=== PATIENT | male | born 1990 | race Caucasian/White ===

== ENCOUNTER 2016-06-16 14:06 | Emergency (ER) | payer MEDICAID, OTHER ==
[~2016-06-16] VITALS: Ht 180.3 cm; Wt 101.5 kg
[~2016-06-16 14:06] MED LIST: BEN25 PO; PRED20TA PO
[2016-06-16 14:50] VITALS: Ht 180.3 cm; Wt 101.5 kg
[2016-06-16] MEDS ORDERED: ONDANSETRON 4 MG INJ IV STA (17:47)
[2016-06-16] MEDS ORDERED: SOD CHLORIDE 0.9% 1,000 ML IV STA (17:47)
[2016-06-16] MEDS ORDERED: morphine 4 MG/ML VIAL IV STA (17:47)
[2016-06-16] MEDS ORDERED: LIDOCAINE/MYLANTA 40 ML BTL PO STA (17:47)
[2016-06-16 18:31] LABS: BASOPHILS % 0.5 % (0.0-2.0); EOSINOPHILS # 0.3 10^3/ul (0.0-0.5); HEMATOCRIT 49.7 % (42.0-52.0); HEMOGLOBIN 16.7 g/dl (14.0-18.0); LYMPHOCYTES % 23.7 % (15.0-51.0); MEAN CORPUSCULAR HGB CONC 33.5 g/dl (32.0-37.0); MEAN CORPUSCULAR VOLUME 89.6 fl (82.0-101.0); MEAN PLATELET VOLUME 9.7 fl (7.4-10.4); MONOCYTE # 0.7 10^3/ul (0.3-0.9); NEUTROPHIL # 5.4 10^3/ul (1.6-7.5); NEUTROPHILS % 64.8 % (39.0-77.0); PLATELET COUNT 247 10^3/UL (140-440); RED BLOOD COUNT 5.55 10^6/ul (4.70-6.10); RED CELL DISTRIBUTION WIDTH 13.5 % (11.5-14.5); UNCORRECTED WBC 8.4 10^3/ul (4.8-10.8); WHITE BLOOD COUNT 8.4 10^3/ul (4.8-10.8)
[2016-06-16 18:36] LABS: CONDITION 1
[2016-06-16 18:43] LABS: ALBUMIN 4.5 g/dl (3.3-4.9); POTASSIUM 4.1 mmol/L (3.5-5.1)
[2016-06-16 18:45] LABS: BILIRUBIN,INDIRECT 0.3 mg/dl (0-1.1); BILIRUBIN,TOTAL 0.3 mg/dl (0.2-1.3); CREATININE 0.69 mg/dl (0.61-1.24)
[2016-06-16 18:46] LABS: ALBUMIN/GLOBULIN RATIO 1.18; CALCIUM 9.2 mg/dl (8.4-10.2); TOTAL PROTEIN 8.3 g/dl (6.1-8.1)
[2016-06-16 18:48] LABS: ADD UMIC YES; URINE BILIRUBIN (Dip) NEGATIVE (NEGATIVE); URINE BLOOD (Dip) NEGATIVE (NEGATIVE); URINE COLOR YELLOW (YELLOW); URINE GLUCOSE (Dip) NEGATIVE (NEGATIVE); URINE KETONES (Dip) TRACE (NEGATIVE); URINE LEUKOCYTE ESTERASE (Dip) NEGATIVE (NEGATIVE); URINE NITRITE (Dip) NEGATIVE (NEGATIVE); URINE TOTAL PROTEIN (Dip) TRACE (NEGATIVE); URINE UROBILINOGEN (Dip) 0.2 E.U./dL (0.1-1.0)
[2016-06-16 19:08] LABS: MUCUS,URINE FEW; URINE RBCS NONE SEEN /HPF (0)
[2016-06-16 19:09] LABS: SQUAMOUS EPITHELIAL CELL,UR RARE
[2016-06-16] MEDS ORDERED: ONDA4TAB14 PO (19:26)
[2016-06-16] MEDS ORDERED: OMEP20CA16 PO (19:26)
[2016-06-16] MEDS ORDERED: DOCU-144 PO (19:26)
--- NOTE | 2016-06-16 20:24 | ERD ---
ER Documentation Chief Complaint Date/Time DATE: 06/16/16 TIME: 20:19 Chief Complaint AP, nausea, blood in stool since last night. HPI Patient is a 25-year-old male who complains of pain that radiates from his upper esophageal area down to the epigastric area and slightly lower in the stomach. Pain started at 3 AM he vomited 41 he has no diarrhea he does have constipation and he strains and he had blood on the tissue paper when he wiped. He admits to chills no fever no UTI symptoms and he had nausea after he ate. Denies history of gallstones. He takes Benadryl denies other medical problems no surgeries. ROS All systems reviewed and are negative except as per history of present illness. Medications Home Meds Active Scripts Docusate Sodium* (Colace*) 100 Mg Capsule, 100 MG PO TID Y for CONSTIPATION, # 30 CAP Prov:PATY OSWALD DO 06/16/16 Ondansetron (Ondansetron Odt) 4 Mg Tab.rapdis, 4 MG PO Q6H Y for NAUSEA AND/OR VOMITING, #6 TAB Prov:PATY OSWALD DO 06/16/16 Omeprazole* (Omeprazole*) 20 Mg Capsule.dr, 20 MG PO BID, #20 Prov:PATY OSWALD DO 06/16/16 Diphenhydramine Hcl* (Benadryl*) 25 Mg Cap, 25 MG PO Q6, #20 CAP Prov:MENDY SANDERS PA-C 03/30/16 Prednisone* (Prednisone*) 20 Mg Tab, 40 MG PO DAILY for 4 Days, TAB Prov:MENDY SANDERS PA-C 03/30/16 Allergies Allergies: Coded Allergies: No Known Allergy (Unverified , 06/16/16) PMhx/Soc Medical and Surgical Hx: pt denies Medical Hx, pt denies Surgical Hx History of Surgery: No Anesthesia Reaction: No Hx Neurological Disorder: No Hx Respiratory Disorders: No Hx Cardiac Disorders: No Hx Psychiatric Problems: No Hx Miscellaneous Medical Probl: No Hx Alcohol Use: Yes Hx Substance Use: No Hx Tobacco Use: Yes Smoking Status: Never smoker Physical Exam Vitals Vital Signs Date Time Temp Pulse Resp B/P Pulse Ox O2 Delivery O2 Flow Rate FiO2 06/16/16 14:50 98.1 77 18 136/88 98 Physical Exam Const: [Alert oriented 4, well-nourished well-developed nontoxic- appearing no apparent distress, interacts appropriately] Head: [Normocephalic/atraumatic, no scalp lesions] Eyes: [Normal Conjunctiva, PERRLA, EOMI no conjunctival injection no conjunctival discharge] ENT: [Normal External Ears, Nose and Mouth, no tonsillar exudates no tonsillar erythema no tonsillar edema oropharynx no erythema. bilateral ear canals are patent, bilateral tympanic membranes nonerythematous.] Neck: [Full range of motion. No meningismus. No cervical lymphadenopathy] Resp: [Clear to auscultation bilaterally, no wheezes rhonchi or rales, breathing normally, no tachypnea no nasal flaring no grunting no accessory muscle use no retractions] Cardio: [Regular rate and rhythm, no murmurs] Abd: [Soft, non tender, non distended. Normal bowel sounds, no rebound rigidity or guarding. Normoactive bowel sounds no flank tenderness, negative McBurney's negative Vickers sign.] Skin: [No petechiae or rashes, no hives no urticaria no abscess no laceration no new warmth] Back: [No midline or flank tenderness, full range of motion without pain ] Ext: [No cyanosis, clubbing or edema] Neuro: M/S: Alert and oriented 4. Face: EOMI, face and pharynx with normal sensation and function Motor: Normal strength throughout, muscle strength is 5 out of 5 bilateral upper extremity and bilateral lower extremity Sensation: Normal sensation throughout Speech: Normal Cerebel: Normal coordination Normal gait DTR: 2+ and symmetric upper/lower extremities Psych: [Normal Mood and Affect, no suicidal ideation or homicide ideation] Result Diagram: 06/16/16180206/16/161802 Results 24 hrs Laboratory Tests Test 06/16/16 18:00 06/16/16 18:03 Urine Bilirubin NEGATIVE Urine Clarity SLIGHTLY CLOUDY Urine Color YELLOW Urine Glucose NEGATIVE% Urine Hemoglobin NEGATIVE Urine Ketones TRACE Urine Leukocyte Esterase NEGATIVE Urine Microscopic RBC NONE SEEN/HPF Urine Microscopic WBC 0-2/HPF Urine Mucus FEW Urine Nitrite NEGATIVE Urine Specific [place] >=1.030 Urine Squamous Epithelial Cells RARE Urine Total Protein TRACE Urine Urobilinogen 0.2 E.U./dL Urine pH 5.5 Alanine Aminotransferase (ALT/SGPT) 62IU/L Albumin 4.5g/dl Albumin/Globulin Ratio 1.18 Alkaline Phosphatase 99IU/L Anion Gap 18 Aspartate Amino Transf (AST/SGOT) 35IU/L Basophils # 0.010^3/ul Basophils % 0.5% Blood Urea Nitrogen 16mg/dl Calcium Level 9.2mg/dl Carbon Dioxide Level 27mmol/L Chloride Level 105mmol/L Creatinine 0.69mg/dl Direct Bilirubin 0.00mg/dl Eosinophils # 0.310^3/ul Eosinophils % 3.0% Globulin 3.80g/dl Glucose Level 93mg/dl Hematocrit 49.7% Hemoglobin 16.7g/dl Indirect Bilirubin 0.3mg/dl Lipase 44U/L Lymphocytes # 2.010^3/ul Lymphocytes % 23.7% Mean Corpuscular Hemoglobin 30.0pg Mean Corpuscular Hemoglobin Concent 33.5g/dl Mean Corpuscular Volume 89.6fl Mean Platelet Volume 9.7fl Monocytes # 0.710^3/ul Monocytes % 8.0% Neutrophils # 5.410^3/ul Neutrophils % 64.8% Nucleated Red Blood Cells # 0.010^3/ul Nucleated Red Blood Cells % 0.0/100WBC Platelet Count 77573^3/UL Potassium Level 4.1mmol/L Red Blood Count 5.5510^6/ul Red Cell Distribution Width 13.5% Sodium Level 146mmol/L Total Bilirubin 0.3mg/dl Total Protein 8.3g/dl White Blood Count 8.410^3/ul Current Medications Medications (Trade) Dose Ordered Sig/Amber Route PRN Reason Start Time Stop Time Status Last Admin Dose Admin Sodium Chloride (NS) 1,000 ml @ 1,000 mls/hr Q1H STAT IV 06/16/16 17:47 06/16/16 18:46 DC 06/16/16 18:00 Morphine Sulfate (morphine) 4 mg ONCE STAT IV 06/16/16 17:47 06/16/16 17:49 DC 06/16/16 18:03 Ondansetron HCl (Zofran Inj) 4 mg ONCE STAT IV 06/16/16 17:47 06/16/16 17:49 DC 06/16/16 18:01 Miscellaneous Medication (Gi Cocktail (2)) 40 ml ONCE STAT PO 06/16/16 17:47 06/16/16 17:49 DC 06/16/16 18:03 Procedures/MDM His urine shows trace ketones and spelled high specific gravity so is likely dehydrated and we did give him IV fluids. Urine does not show nitrates or leukocyte Estrace negative for UTI or pyelonephritis. His no fevers no leukocytosis I doubt diverticulitis appendicitis his lipase is normal I doubt pancreatitis. There is no fever no leukocytosis no transaminitis I doubt cholangitis cholecystitis choledocholithiasis. I doubt pyelonephritis. He may have duodenitis or peptic ulcer disease or gastritis or dyspepsia. He felt better after we gave him IV fluids and nausea medication pain medication GI cocktail. I will give him proton pump inhibitors and he should follow-up with his primary doctor. His vital signs are stable he appears well he has no abdominal tenderness on repeat exam. He stable for discharge ED precautions discussed follow-up with PCP. Departure Diagnosis: Primary Impression: Abdominal pain Abdominal location: epigastric Qualified Code: R10.13 - Epigastric pain Additional Impression: Vomiting in adult patient Condition: Stable Patient Instructions: Lifestyle Changes for Controlling GERD, Medications for GERD, Gerd (Adult), Gastritis Vs. Ulcer Referrals: [facility] YOU HAVE RECEIVED A MEDICAL SCREENING EXAM AND THE RESULTS INDICATE THAT YOU DO NOT HAVE A CONDITION THAT REQUIRES URGENT TREATMENT IN THE EMERGENCY DEPARTMENT. FURTHER EVALUATION AND TREATMENT OF YOUR CONDITION CAN WAIT UNTIL YOU ARE SEEN IN YOUR DOCTORS OFFICE WITHIN THE NEXT 1-2 DAYS. IT IS YOUR RESPONSIBILITY TO MAKE AN APPOINTMENT FOR FOLOW-UP CARE. IF YOU HAVE A PRIMARY DOCTOR --you should call your primary doctor and schedule an appointment IF YOU DO NOT HAVE A PRIMARY DOCTOR YOU CAN CALL OUR PHYSICIAN REFERRAL HOTLINE AT IF YOU CAN NOT AFFORD TO SEE A PHYSICIAN YOU CAN CHOSE FROM THE FOLLOWING [facility] [address] [facility] [address] [facility] [address] [facility] [facility] [address] [facility]. [facility] [address] [facility]. [facility]. [address] [facility]. [facility] YOU HAVE RECEIVED A MEDICAL SCREENING EXAM AND THE RESULTS INDICATE THAT YOU DO NOT HAVE A CONDITION THAT REQUIRES URGENT TREATMENT IN THE EMERGENCY DEPARTMENT. FURTHER EVALUATION AND TREATMENT OF YOUR CONDITION CAN WAIT UNTIL YOU ARE SEEN IN YOUR DOCTORS OFFICE WITHIN THE NEXT 1-2 DAYS. IT IS YOUR RESPONSIBILITY TO MAKE AN APPOINTMENT FOR FOLOW-UP CARE. IF YOU HAVE A PRIMARY DOCTOR --you should call your primary doctor and schedule and appointment IF YOU DO NOT HAVE A PRIMARY DOCTOR YOU CAN CALL OUR PHYSICIAN REFERRAL HOTLINE AT . IF YOU CAN NOT AFFORD TO SEE A PHYSICIAN YOU CAN CHOSE FROM THE FOLLOWING [facility] INSTITUTIONS: [facility] [address] [place] [address] [facility] [address] [place] [address] [facility] [address] [place] [address] PATY OSWALD DO Jun 16, 2016 20:24
== END 2016-06-16 19:32 | disposition home or self-care (01) ==
LOC: FTE 14:06
DX: R10.13 Epigastric pain (principal); R11.10 Vomiting, unspecified; Z72.0 Tobacco use
CPT/HCPCS: 80053; 81001; 83690; 85025; J2270; J2405; J7030; Z7610; 36415; 81003; 96374; 96375

== ENCOUNTER 2016-09-28 19:35 | Emergency (ER) | payer OTHER ==
[~2016-09-28] VITALS: Ht 172.7 cm; Wt 102.5 kg
[~2016-09-28 19:35] MED LIST changes: +DOCU-144 PO; +OMEP20CA16 PO; +ONDA4TAB14 PO
[2016-09-28 19:41] VITALS: Ht 172.7 cm; Wt 102.5 kg
[2016-09-28] MEDS ORDERED: ONDANSETRON (ODT) 4 MG TAB ODT STA (23:54)
[2016-09-28] MEDS ORDERED: KETOROLAC 30 MG INJ IM STA (23:54)
[2016-09-29 00:14] LABS: ADD SCAN DIFF NO
[2016-09-29 00:16] LABS: BASOPHILS % 0.4 % (0.0-2.0); EOSINOPHILS # 0.2 10^3/ul (0.0-0.5); HEMATOCRIT 51.3 % (42.0-52.0); HEMOGLOBIN 17.1 g/dl (14.0-18.0); LYMPHOCYTES # 1.6 10^3/ul (0.8-2.9); LYMPHOCYTES % 16.9 % (15.0-51.0); MEAN CORPUSCULAR HEMOGLOBIN 30.8 pg (29.0-33.0); MEAN CORPUSCULAR HGB CONC 33.3 g/dl (32.0-37.0); MEAN CORPUSCULAR VOLUME 92.4 fl (82.0-101.0); MEAN PLATELET VOLUME 11.3 fl (7.4-10.4); MONOCYTE # 0.7 10^3/ul (0.3-0.9); MONOCYTES % 7.6 % (0.0-11.0); NEUTROPHILS % 72.6 % (39.0-77.0); PLATELET COUNT 260 10^3/UL (140-415); RED BLOOD COUNT 5.55 10^6/ul (4.70-6.10); RED CELL DISTRIBUTION WIDTH 13.2 % (11.5-14.5); WHITE BLOOD COUNT 9.7 10^3/ul (4.8-10.8)
[2016-09-29 00:18] LABS: ADD UMIC NO; URINE BILIRUBIN (Dip) NEGATIVE (NEGATIVE); URINE BLOOD (Dip) NEGATIVE (NEGATIVE); URINE COLOR LT. YELLOW (YELLOW); URINE GLUCOSE (Dip) NEGATIVE (NEGATIVE); URINE KETONES (Dip) NEGATIVE (NEGATIVE); URINE LEUKOCYTE ESTERASE (Dip) NEGATIVE (NEGATIVE); URINE NITRITE (Dip) NEGATIVE (NEGATIVE); URINE TOTAL PROTEIN (Dip) NEGATIVE (NEGATIVE); URINE UROBILINOGEN (Dip) 0.2 E.U./dL (0.1-1.0)
[2016-09-29 00:29] LABS: ALBUMIN 4.5 g/dl (3.3-4.9); ALBUMIN/GLOBULIN RATIO 1.28; BILIRUBIN,INDIRECT 0.6 mg/dl (0-1.1); BILIRUBIN,TOTAL 0.6 mg/dl (0.2-1.3); CALCIUM 9.2 mg/dl (8.4-10.2); CREATININE 0.7 mg/dl (0.61-1.24); POTASSIUM 4.2 mmol/L (3.5-5.1)
--- NOTE | 2016-09-29 01:30 | RADRPT ---
PROCEDURE: Abdominal ultrasound, limited. CLINICAL INDICATION: Abdominal pain. TECHNIQUE: Multiple real-time images were acquired of the patient's right upper abdomen utilizing a high resolution transducer. COMPARISON: None FINDINGS: The liver demonstrates increased echogenicity and size measuring 20.4 cm. There is no focal mass or intrahepatic biliary ductal dilatation. The portal vein is patent. The gallbladder is not distend ed. No gallstones are identified. There is no pericholecystic fluid or gallbladder wall thickening . The common bile duct measures 3.8 mm in maximal dimension. The pancreas is obscured by overlying bowel gas. No free fluid is identified. The right kidney is normal size and echogenicity measuring 12.8 cm. There is no focal renal mass or echogenic calculus identified. There is no obstructive uropathy. IMPRESSION: Enlarged liver with fatty infiltration. Pancreas obscured by overlying bowel gas. .Kodi Brown MD, MD Date Time Electronically viewed and signed by .Kodi Brown MD, MD on 09/29/2016 01:30 .T/
[2016-09-29] MEDS ORDERED: HYDR-906 PO (01:42)
[2016-09-29] MEDS ORDERED: OMEP20CA16 PO (01:42)
[2016-09-29] MEDS ORDERED: ONDA4TAB8 PO (01:42)
[2016-09-29 01:56] VITALS: BP 139/90; PULSE 84; RESP 18; TEMP 97.9
--- NOTE | 2016-09-29 23:27 | ERD ---
ER Documentation Chief Complaint Date/Time DATE: 09/29/16 TIME: 23:09 Chief Complaint diffuse abd pain x 2 days HPI This is a 26 year old male who presents with abdominal pain and nausea x2 days. He describes it as sharp, epigastric pain that radiates to the umbilical area and with sudden onset. Pain is intermittent and is aggravated after eating. Pt takes OTC benadryl and prilosec for symptom relief. Denies fever, anorexia, vomiting, chest pain, dysuria, constipation or diarrhea. No recent sick contacts or foreign travel. ROS All systems reviewed and are negative except as per history of present illness. Medications Home Meds Active Scripts Hydrocodone/Acetaminophen (Lynn 5-325 Tablet) 1 Each Tablet, 1 TAB PO Q6H Y for PAIN, #10 TAB Prov:NIDIA FRY 09/29/16 Ondansetron Hcl* (Zofran*) 4 Mg Tablet, 4 MG PO Q6H for NAUSEA AND/OR VOMITING, #30 TAB Prov:NIDIA FRY 09/29/16 Omeprazole* (Omeprazole*) 20 Mg Capsule.dr, 20 MG PO DAILY, #30 Prov:NIDIA FRY 09/29/16 Docusate Sodium* (Colace*) 100 Mg Capsule, 100 MG PO TID Y for CONSTIPATION, # 30 CAP Prov:PATY OSWALD DO 06/16/16 Ondansetron (Ondansetron Odt) 4 Mg Tab.rapdis, 4 MG PO Q6H Y for NAUSEA AND/OR VOMITING, #6 TAB Prov:PATY OSWALD DO 06/16/16 Omeprazole* (Omeprazole*) 20 Mg Capsule.dr, 20 MG PO BID, #20 Prov:PATY OSWALD DO 06/16/16 Diphenhydramine Hcl* (Benadryl*) 25 Mg Cap, 25 MG PO Q6, #20 CAP Prov:MENDY SANDERS PA-C 03/30/16 Prednisone* (Prednisone*) 20 Mg Tab, 40 MG PO DAILY for 4 Days, TAB Prov:MENDY SANDERS PA-C 03/30/16 Allergies Allergies: Coded Allergies: No Known Allergy (Unverified , 06/16/16) PMhx/Soc History of Surgery: No Anesthesia Reaction: No Hx Neurological Disorder: No Hx Respiratory Disorders: No Hx Cardiac Disorders: No Hx Psychiatric Problems: No Hx Miscellaneous Medical Probl: No Hx Alcohol Use: Yes Hx Substance Use: No Hx Tobacco Use: Yes Smoking Status: Unknown if ever smoked Physical Exam Vitals Vital Signs Date Time Temp Pulse Resp B/P Pulse Ox O2 Delivery O2 Flow Rate FiO2 09/29/16 01:56 97.9 84 18 139/90 98 Room Air 09/28/16 19:41 98.7 87 20 143/65 98 Physical Exam Physical Exam CONST: Well-developed, well-nourished, in no acute distress. Nontoxic in appearance. HEENT: Atraumatic. Normal conjunctiva. EOM intact. TM intact. External ear is normal. Clear oropharnyx without erythema. No uvular deviation. Moist mucous membranes. Supple neck. No meningismus. No submandibular induration. RESP: Clear to auscultation bilaterally. No wheezing. CARDIO: Regular rate and rhythm, no murmurs. ABD: Epigastric and supraumbilical tenderness. Abdomen is soft and non- distended. Normal bowel sounds. No guarding or rigidity. No peritoneal signs. SKIN: No petechiae or rashes. BACK: No midline or flank tenderness. EXT: No cyanosis or edema. Distal pulses equal and bilateral. NEURO: Awake and alert, appropriate for age. 5/5 strength in all extremities. Normal speech. Steady gait. Result Diagram: 09/28/16 0000 09/28/16 0000 Results 24 hrs Laboratory Tests Test 09/28/16 00:00 09/28/16 00:05 White Blood Count 9.710^3/ul Red Blood Count 5.5510^6/ul Hemoglobin 17.1g/dl Hematocrit 51.3% Mean Corpuscular Volume 92.4fl Mean Corpuscular Hemoglobin 30.8pg Mean Corpuscular Hemoglobin Concent 33.3g/dl Red Cell Distribution Width 13.2% Platelet Count 72645^3/UL Mean Platelet Volume 11.3fl Neutrophils % 72.6% Lymphocytes % 16.9% Monocytes % 7.6% Eosinophils % 2.0% Basophils % 0.4% Nucleated Red Blood Cells % 0.0/100WBC Neutrophils # 7.010^3/ul Lymphocytes # 1.610^3/ul Monocytes # 0.710^3/ul Eosinophils # 0.210^3/ul Basophils # 0.010^3/ul Nucleated Red Blood Cells # 0.010^3/ul Sodium Level 140mmol/L Potassium Level 4.2mmol/L Chloride Level 103mmol/L Carbon Dioxide Level 27mmol/L Anion Gap 14 Blood Urea Nitrogen 11mg/dl Creatinine 0.70mg/dl Glucose Level 98mg/dl Calcium Level 9.2mg/dl Total Bilirubin 0.6mg/dl Direct Bilirubin 0.00mg/dl Indirect Bilirubin 0.6mg/dl Aspartate Amino Transf (AST/SGOT) 38IU/L Alanine Aminotransferase (ALT/SGPT) 76IU/L Alkaline Phosphatase 105IU/L Total Protein 8.0g/dl Albumin 4.5g/dl Globulin 3.50g/dl Albumin/Globulin Ratio 1.28 Lipase 57U/L Urine Color LT. YELLOW Urine Clarity CLEAR Urine pH 5.5 Urine Specific [place] 1.020 Urine Ketones NEGATIVE Urine Nitrite NEGATIVE Urine Bilirubin NEGATIVE Urine Urobilinogen 0.2 E.U./dL Urine Leukocyte Esterase NEGATIVE Urine Hemoglobin NEGATIVE Urine Glucose NEGATIVE% Urine Total Protein NEGATIVE Current Medications Medications (Trade) Dose Ordered Sig/Amber Route PRN Reason Start Time Stop Time Status Last Admin Dose Admin Ketorolac Tromethamine (Toradol) 30 mg ONCE STAT IM 09/28/16 23:54 09/28/16 23:56 DC 09/28/16 23:59 Ondansetron HCl (Zofran Odt) 4 mg ONCE STAT ODT 09/28/16 23:54 09/28/16 23:56 DC 09/28/16 23:59 PROCEDURE: Abdominal ultrasound, limited. CLINICAL INDICATION: Abdominal pain. TECHNIQUE: Multiple real-time images were acquired of the patient's right upper abdomen utilizing a high resolution transducer. COMPARISON: None FINDINGS: The liver demonstrates increased echogenicity and size measuring 20.4 cm. There is no focal mass or intrahepatic biliary ductal dilatation. The portal vein is patent. The gallbladder is not distended. No gallstones are identified. There is no pericholecystic fluid or gallbladder wall thickening. The common bile duct measures 3.8 mm in maximal dimension. The pancreas is obscured by overlying bowel gas. No free fluid is identified. The right kidney is normal size and echogenicity measuring 12.8 cm. There is no focal renal mass or echogenic calculus identified. There is no obstructive uropathy. IMPRESSION: Enlarged liver with fatty infiltration. Pancreas obscured by overlying bowel gas. .Kodi Brown MD, MD Date Time Electronically viewed and signed by .Kodi Brown MD, MD on 09/29/2016 01:30 Procedures/[facility] EMERGENCY DEPARTMENT COURSE/MEDICAL DECISION MAKING This is a 26 year old male who comes to the emergency room secondary to complaints of epigastric pain and nausea x2 days. The patient was given toradol IM and zofran po in the department. On re- evaluation, the patient's symptoms improved. CBC, CMP, Lipase and UA was ordered. Urine does not show nitrates or leukocyte estrace which is unlikely for UTI or pyelonephritis. Lipase is normal which is unlikely for pancreatitis. He has no fevers, leukocytosis or neutrophelia which is unlikely for appendicitis. Given his clinical presentation, US abdomen was ordered to rule out cholecystitis. Result was interpreted by a radiologist and is negative for cholecystitis but has enlarged liver with fatty infiltration. ALT is mildly elevated I believe the patient's symptoms might be caused by viral gastroenteritis or gastric ulcer. Outpatient EGD is warranted if symptoms persists and pt needs to follow-up with a retail custodial associate for his elevated liver enzymes. My primary diagnosis is epigastric pain. Secondary diagnosis is nausea Differential diagnoses considered but not limited to acute appendicitis, diverticulitis, pancreatitis, cholecystitis, gastritis, pyelonephritis, UTI, constipation, gastroenteritis. Pt is hemodynamically stable upon reassessment. There are no new complaints during the ED course. The patient was discharged for outpatient management with a prescription for prilosec, norco and zofran. The patient was advised to followup with their PMD in 1-2 days and request for a referral to a retail custodial associate. Pt was also instructed to return to the Emergency Department if there are any new or worsening symptoms. Educated the patient to avoid fatty foods. The patient understood and agreed with the diagnosis, treatment and plan. Patient is stable for discharge at this time. Departure Diagnosis: Primary Impression: Epigastric pain Additional Impression: Nausea Condition: Stable Patient Instructions: Epigastric Pain (Uncertain Cause) Referrals: [facility] YOU HAVE RECEIVED A MEDICAL SCREENING EXAM AND THE RESULTS INDICATE THAT YOU DO NOT HAVE A CONDITION THAT REQUIRES URGENT TREATMENT IN THE EMERGENCY DEPARTMENT. FURTHER EVALUATION AND TREATMENT OF YOUR CONDITION CAN WAIT UNTIL YOU ARE SEEN IN YOUR DOCTORS OFFICE WITHIN THE NEXT 1-2 DAYS. IT IS YOUR RESPONSIBILITY TO MAKE AN APPOINTMENT FOR FOLOW-UP CARE. IF YOU HAVE A PRIMARY DOCTOR --you should call your primary doctor and schedule an appointment IF YOU DO NOT HAVE A PRIMARY DOCTOR YOU CAN CALL OUR PHYSICIAN REFERRAL HOTLINE AT IF YOU CAN NOT AFFORD TO SEE A PHYSICIAN YOU CAN CHOSE FROM THE FOLLOWING [facility] [address] [facility]. [facility] [address] [facility] [address] [facility] [facility] [address] [facility]. [facility] [address] [facility]. [facility]. [address] Additional Instructions: Avoid fatty foods. Call your primary care doctor tomorrow for an appointment during the next 1-2 days. Return to the emergency department immediately should you have any new or worsening symptoms. Take all medications as directed. NIDIA FRY Sep 29, 2016 23:20
== END 2016-09-29 01:56 | disposition home or self-care (01) ==
LOC: FTE 19:35
DX: R10.13 Epigastric pain (principal); R11.0 Nausea; Z87.891 Personal history of nicotine dependence
CPT/HCPCS: 76705; 80053; 81003; 83690; 85025; J1885; Z7610; 36415; 96372